=== PATIENT | female | born 1965 | race Caucasian/White ===

== ENCOUNTER → 2018-05-26 | Outpatient (CLI) | payer BC, OTHER ==
[~2018-05-26] MED LIST: ADIPEX-P37.5 MG PO; ADVIL200 MG PO; AMBIEN5 MG PO; BUPROBAN150 MG PO; CLARITIN; FEROSUL325 MG PO; FIORICET 325 MG1 TA1 PO; IMITREX100 MG PO; KLONOPIN 0.5MG0.5 MG PO; LEVOXYL0.025 MG PO; MIDRIN; NORCO 325 MG-51 TAB PO; PHENERGAN 25 TA25 MG PO; PHENTERMINE15 MG PO; PRAVACHOL80 MG PO; PRISTIQ 50 MG T50 MG PO; REQUIP0.25 MG PO; SONATA 10MG10 MG PO; XANAX 0.5MG0.5 MG PO
== END ==
LOC: MC.RAD 08:00
DX: Z12.31 Encounter for screening mammogram for malignant neoplasm of breast (principal)

== ENCOUNTER 2018-08-29 06:52 | Emergency (ER) | payer BC, OTHER ==
[~2018-08-29] VITALS: Ht 157.5 cm; Wt 84.1 kg
[2018-08-29 06:55] VITALS: TEMP 97.2
[2018-08-29 08:13] VITALS: BP 136/72; PULSE 70
== END 2018-08-29 08:14 | disposition other institution (70) ==
LOC: COL.ER 06:52
DX: G43.909 Migraine, unspecified, not intractable, without status migrainosus (principal); E03.9 Hypothyroidism, unspecified; Z98.890 Other specified postprocedural states
CPT/HCPCS: J1200; J1885; J2765

== ENCOUNTER → 2018-10-05 | Outpatient (CLI) | payer BC, OTHER | LOC: COL.RAD 10:25 | DX: N83.8 Other noninflammatory disorders of ovary, fallopian tube and broad ligament (principal); N95.0 Postmenopausal bleeding ==

== ENCOUNTER → 2019-06-23 | Outpatient (CLI) | payer BC, OTHER ==
[~2019-06-23] VITALS: Ht 157.5 cm; Wt 87.8 kg
[~2019-06-23] MED LIST changes: +ATARAX 25MG25 MG/TAB PO; -LEVOXYL0.025 MG PO; +LEVOXYL0.05 MG PO; +MELATIN 3 MG-11 TAB PO; +NUVIGIL150 MG PO; +SINGULAIR 110 MG/TAB PO; +ZETIA 10MG TAB10 MG PO
[2019-06-23 08:56] VITALS: BP 134/96; PULSE 64
== END ==
LOC: LIGHT 08:04
DX: E88.81 Metabolic syndrome and other insulin resistance (principal); G47.33 Obstructive sleep apnea (adult) (pediatric); E78.5 Hyperlipidemia, unspecified; E66.9 Obesity, unspecified; Z68.34 Body mass index [BMI] 34.0-34.9, adult; Z71.3 Dietary counseling and surveillance
CPT/HCPCS: G0463

== ENCOUNTER → 2019-07-12 | Outpatient (CLI) | payer BC, OTHER | LOC: LIGHT 10:36 | DX: E88.81 Metabolic syndrome and other insulin resistance (principal); G47.33 Obstructive sleep apnea (adult) (pediatric); E78.5 Hyperlipidemia, unspecified; E66.9 Obesity, unspecified ==

== ENCOUNTER → 2019-07-15 | Outpatient (CLI) | payer BC, OTHER ==
[~2019-07-15] VITALS: Ht 157.5 cm; Wt 86.4 kg
[2019-07-15 10:04] VITALS: BP 120/80; PULSE 80
== END ==
LOC: LIGHT 09:56
DX: E88.81 Metabolic syndrome and other insulin resistance (principal); G47.33 Obstructive sleep apnea (adult) (pediatric); E78.5 Hyperlipidemia, unspecified; E66.9 Obesity, unspecified; Z68.34 Body mass index [BMI] 34.0-34.9, adult; Z71.3 Dietary counseling and surveillance
CPT/HCPCS: G0463

== ENCOUNTER → 2019-08-26 | Outpatient (CLI) | payer BC, OTHER ==
[~2019-08-26] VITALS: Ht 157.5 cm; Wt 88.0 kg
[~2019-08-26] MED LIST changes: -LEVOXYL0.05 MG PO; +LEVOXYL0.075 MG PO; -NUVIGIL150 MG PO; +NUVIGIL200 MG PO
[2019-08-26 16:13] VITALS: BP 120/80; PULSE 86
== END ==
LOC: LIGHT 16:06
DX: E88.81 Metabolic syndrome and other insulin resistance (principal); G47.33 Obstructive sleep apnea (adult) (pediatric); E78.5 Hyperlipidemia, unspecified; E66.9 Obesity, unspecified; Z68.35 Body mass index [BMI] 35.0-35.9, adult; Z71.3 Dietary counseling and surveillance
CPT/HCPCS: G0463

== ENCOUNTER → 2019-12-13 | Outpatient (CLI) | payer BC, OTHER | LOC: LIGHT 14:58 | DX: Z02.89 Encounter for other administrative examinations (principal) ==

== ENCOUNTER → 2020-07-06 | Outpatient (CLI) | payer BC, OTHER ==
[~2020-07-06] VITALS: Ht 157.5 cm; Wt 81.4 kg
[2020-07-06 11:04] VITALS: BP 140/94; PULSE 64
== END ==
LOC: LIGHT 01-06 14:14
DX: E66.8 Other obesity (principal); Z68.32 Body mass index [BMI] 32.0-32.9, adult; E88.81 Metabolic syndrome and other insulin resistance; E78.5 Hyperlipidemia, unspecified
CPT/HCPCS: G0463

== ENCOUNTER → 2020-08-24 | Outpatient (CLI) | payer BC, OTHER ==
[~2020-08-24] VITALS: Ht 157.5 cm; Wt 82.6 kg
[~2020-08-24] MED LIST changes: +FASTIN30 MG PO; +TOPAMAX 25MG25 M1 PO
[2020-08-24 11:02] VITALS: BP 120/76; PULSE 72
== END ==
LOC: LIGHT 11:00
DX: E66.8 Other obesity (principal); Z68.33 Body mass index [BMI] 33.0-33.9, adult; E88.81 Metabolic syndrome and other insulin resistance; E78.5 Hyperlipidemia, unspecified
CPT/HCPCS: G0463

== ENCOUNTER → 2024-07-07 | Outpatient (CLI) | payer BC ==
[~2024-07-07] MED LIST changes: +CELEBREX 200MG200 MG PO; +CEPHALEXIN500 M1 PO; +ULTRAM 50MG TAB50 MG PO
== END ==
LOC: COL.RAD 09:32
DX: E21.3 Hyperparathyroidism, unspecified (principal)
CPT/HCPCS: A9500-JZ